=== PATIENT | male | born 1995 | race Hispanic/Latino ===

== ENCOUNTER 2018-04-18 10:52 | Emergency (ER) | payer OTHER, SELFPAY ==
[2018-04-18 11:34] LABS: Bilirubin Negative (Negative); Blood, Urine Negative (Negative); Clarity Clear (Clear); Glucose, Urine (Dipstick) Negative (Negative); Leukocyte Negative (Negative); Nitrite Negative (Negative); Protein, Urine (Dipstick) Negative (Neg-Trace); Urobilinogen 0.2 mg/dL (0.2-1.0); pH, Urine 7.5 (5.0-9.0)
[2018-04-19 22:48] LABS: Chlamydia by PCR Not Detected (NotDetected); GC by PCR Not Detected (NotDetected)
== END 2018-04-18 11:42 | disposition home or self-care (01) ==
LOC: BURERS 10:52
DX: R30.0 Dysuria (principal)
CPT/HCPCS: 81003; 87491; 87591; 99283

== ENCOUNTER 2020-08-13 07:58 | Emergency (ER) | payer SELFPAY ==
[2020-08-13] MEDS ORDERED: traMADol HCl 50 MG TAB ONE (08:30)
[2020-08-13] MEDS ORDERED: Ibuprofen 800 MG TAB ONE (08:30)
[2020-08-13] MEDS ORDERED: Lorazepam 0.5 MG TAB ONE (18:09)
== END 2020-08-13 08:39 | disposition home or self-care (01) ==
LOC: BURERS 07:58
DX: R07.89 Other chest pain (principal)

== ENCOUNTER 2020-08-13 16:32 | Emergency (ER) | payer SELFPAY ==
[2020-08-13 18:09] LABS: #Lymphocytes 1.4 thou/uL (1.20-3.40); #Monocytes 0.5 thou/uL (0.11-0.59); #Neutrophils 5.1 thou/uL (1.40-6.50); %Basophils 0.6 % (0.0-1.0); %Eosinophils 0.2 % (0.0-10.0); %Lymphocytes 19.9 % (21.0-51.0); %Monocytes 7.4 % (0.0-10.0); %Neutrophils 71.8 % (42.0-75.0); Hemoglobin 17.2 g/dL (14.0-18.0); Mean Corpuscular Hemoglobin 30.7 pg (27.0-31.0); Mean Corpuscular Volume 90.3 fL (78.0-98.0); Mean Platelet Volume 7.9 fL (7.4-10.4); Platelet Count 243 thou/uL (130-400); RBC Distribution Width 10.9 % (11.5-14.5); White Blood Cell (WBC) Count 7.2 thou/uL (4.8-10.8)
[2020-08-13 18:26] LABS: ALT (SGPT) 15 U/L (8-55); AST (SGOT) 16 U/L (5-34); Albumin 4.4 g/dL (3.5-5.0); Alkaline Phosphatase 30 U/L (40-110); Anion Gap 16 mmol/L (10-20); BUN (Urea Nitrogen) 11 mg/dL (8.9-20.6); Bilirubin, Total 1.1 mg/dL (0.2-1.2); Calc. Creatinine Clearance 0 mL/min (70-130); Calcium 9.6 mg/dL (7.8-10.44); Carbon Dioxide 25 mmol/L (22-29); Chloride 98 mmol/L (98-107); Globulin 2.8 g/dL (2.4-3.5); Glucose 115 mg/dL (70-105); Potassium 3.5 mmol/L (3.5-5.1); Protein, Total 7.2 g/dL (6.0-8.3); Sodium 135 mmol/L (136-145)
== END 2020-08-13 19:40 | disposition home or self-care (01) ==
LOC: BURERS 16:32
DX: F41.1 Generalized anxiety disorder (principal)
CPT/HCPCS: 36415; 71045; 80053; 84484; 85025; 93005

== ENCOUNTER 2024-02-25 10:10 | Emergency (ER) | payer SELFPAY | END 2024-02-25 10:38 | disposition home or self-care (01) | LOC: BURERS 10:10 | DX: M54.50 Low back pain, unspecified (principal); X50.9XXA Other and unspecified overexertion or strenuous movements or postures, initial encounter | CPT/HCPCS: 99283 ==